=== PATIENT | female | born 1995 | race Caucasian/White ===

== ENCOUNTER → 2017-08-12 | Outpatient (CLI) | payer OTHER ==
[~2017-08-12] MED LIST: GADOBENATE 529MG/1ML 15ML VIAL IVP ONE
--- NOTE | 2017-08-12 12:01 | RADIOLOGY IMAGING REPORT ---
FACILITY: [facility] PATIENT NAME: Jayashree Wayne : 1995 MR: [id number] V: [id number] EXAM DATE: ORDERING PHYSICIAN: ANGEL ROSENBAUM TECHNOLOGIST: Location: [facility] Patient: Jayashree Wayne : 1995 Visit/Account:[id number] Date of Sevice: 08/12/2017 TIBIA RIGHT W W/O CONTRAST COMPARISON: 02/20/2017. HISTORY: Mass RLE. TECHNIQUE: Multiplanar MRI of the right lower leg utilizing T1 weighted and fluid sensitive sequences with and without IV gadolinium. CONTRAST: 14 mL of Gadobenate was given intravenously. FINDINGS: BONES : Normal marrow signal and alignment. FLUID: No appreciable effusion or drainable fluid collection. SOFT TISSUES: No muscle atrophy or edema. On the previous study, 4 enhancing areas of edema-like sig nal present within the subcutaneous fat of the lower leg. Most of these have completely resolved. The re is a single site of mild residual vague enhancement in the midline anterior subcutaneous fat overl thomas the distal tibial shaft about 8.7 cm proximal to the ankle. On the previous study, enhancement a t this location was more avid, and there were T2 bright signal changes at this site; no definite sign al abnormality is seen on T1 or T2-weighted images today. There is no well-defined soft tissue mass here or elsewhere. OTHER: Negative. IMPRESSION: 1. No evidence of a soft tissue or bone mass. 2. Subtotal resolution of multiple foci of enhancing edema-like signal in the subcutaneous fat of th e right lower leg with a single site of residual subcutaneous fat enhancement in the distal lower leg which has decreased in conspicuity. The etiology remains indeterminate, but given resolution of othe r findings and decreased conspicuity of the remaining focus, a transient, benign process such as fat necrosis is probable. Report Dictated By: Ascencion Carrillo at 08/12/2017 11:43 AM Report E-Signed By: Ascencion Carrillo at 08/12/2017 11:56 AM WSN:[id number]
== END ==
LOC: MRI 01:27
PROVIDERS: ATTEND Nurse Practitioner Primary Care
DX: R22.41 Localized swelling, mass and lump, right lower limb (principal)
CPT/HCPCS: 73720; A9577

== ENCOUNTER → 2017-10-11 | Outpatient (CLI) | payer OTHER ==
[~2017-10-11] MED LIST changes: +ALPR-429 PO; -GADOBENATE 529MG/1ML 15ML VIAL IVP ONE; +SERT-1 PO
== END ==
LOC: LAB 12:00
PROVIDERS: ATTEND Obstetrics & Gynecology
DX: Z11.3 Encounter for screening for infections with a predominantly sexual mode of transmission (principal)
CPT/HCPCS: 87491; 87591